=== PATIENT | male | born 1965 | race Caucasian/White ===

== ENCOUNTER 2017-01-24 08:08 | Outpatient (CLI) | payer BC ==
--- NOTE | 2017-01-24 10:51 | MRI ---
MRI LUMBAR SPINE WITHOUT CONTRAST: Date: 01/24/17 COMPARISON: None. HISTORY: Bilateral leg pain for 2 months. Lumbar disc herniation. TECHNIQUE: Multiplanar, multisequence MR images were obtained of the lumbar spine without contrast. FINDINGS: Generalized disc desiccation is seen. The vertebral bodies demonstrate normal height and alignment wi thout fracture or subluxation. The conus medullaris terminates normally at L1-2. The prevertebral and paraspinal soft tissues are unremarkable. T12-L1: Unremarkable. L1-2: No significant bulge or protrusion. Mild bilateral posterior facet arthrosis. No central canal stenos is. No neural foraminal stenosis. L2-3: A moderate disc osteophyte complex is seen. No posterior facet arthrosis. Moderate to severe central canal stenosis. Mild bilateral neural foraminal stenosis. L3-4: A large disc osteophyte complex is associated with a large superimposed central protrusion. Mild bila teral posterior facet arthrosis. Severe central canal stenosis. Moderate bilateral neural foraminal s tenosis. L4-5: A large disc osteophyte complex is seen. Mild bilateral posterior facet arthrosis. Mild central canal stenosis. Severe bilateral neural foraminal stenosis. L5-S1: A small generalized concentric disc bulge is associated with a central protrusion. This protrusion is associated with high T2 signal, likely secondary to an annular tear. No posterior facet arthrosis. M ild central canal stenosis. Moderate bilateral neural foraminal stenosis. IMPRESSION: Degenerative changes of the lumbar spine as above. POS: ABEBE
== END 2017-01-24 08:09 | disposition home or self-care (01) ==
LOC: SCSMRI 08:08
PROVIDERS: ATTEND Anesthesiology Pain Medicine
DX: M51.16 Intervertebral disc disorders with radiculopathy, lumbar region (principal); M47.26 Other spondylosis with radiculopathy, lumbar region
CPT/HCPCS: 72148

== ENCOUNTER → 2017-02-02 | Day surgery (SDC) | payer BC ==
[2017-02-01 10:28] VITALS: BMI 39.0
[~2017-02-02] MED LIST: Bupivacaine/Epinephrine 0.25% 30 ML VIAL ONE; CEFAZOLIN/Water 2 GM/20 ML SYRINGE ONE; Fentanyl 100 MCG/2 ML VIAL ONE; HYDROcodone/Acetaminophen 5/325 mg Tablet ONE; Midazolam HCl 2 mg/2 ml Vial ONE; Tamsulosin HCl 0.4 MG CAP ONE; Thrombin 5000 UNITS/5 ML VIAL ONE
--- NOTE | 2017-02-02 05:56 | HP ---
HISTORY OF PRESENT ILLNESS: Mr. Kwan is a 51-year-old man who is referred to us by Dr. Hood vogt for the lumbar stenosis with MRI at [facility] revealing severe central canal stenosis at L3 f rom central disk herniation. He denies weakness and saddle anesthesia. He does have very classic ne urogenic claudication symptoms. He has had [address] Marshall this year, but t hey helped minimally whereas last year, he had a single injection that nearly resolved his symptom pr esentation. At this point, he is ready for surgery as soon as possible. PAST MEDICAL HISTORY: Includes hypertension and back pain. MEDICATIONS: Hydrochlorothiazide. ALLERGIES: No known drug allergies. PAST SURGICAL HISTORY: Unassessed. PHYSICAL EXAMINATION: GENERAL: The patient is alert and oriented x3. NEUROLOGIC: Gait is severely antalgic. Lower extremity motor exam is normal. He has a normal strai ght leg raise, Mikel's test bilaterally. There is no sensory disturbance that I can discern in eit her lower extremities. 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 PLAN: Dr. Post met with the patient, reviewed imaging and advocated for L4 diskectomy. He explaine d to the patient the risks, benefits, and alternatives to the procedure. The patient expressed under standing and would like to move forward with surgery as discussed. I do believe the patient is menta jeromey competent and capable of making medical decisions for himself and move forward with surgery as pl anned.
[2017-02-02 08:37] LABS: #Basophils 0.1 thou/uL (0.0-0.2); #Eosinphils 0.2 thou/uL (0.0-0.7); #Lymphocytes 2.2 thou/uL (1.20-3.40); #Monocytes 0.7 thou/uL (0.11-0.59); #Neutrophils 10.3 thou/uL (1.40-6.50); %Basophils 0.8 % (0.0-1.0); %Eosinophils 1.2 % (0.0-10.0); %Lymphocytes 15.9 % (21.0-51.0); %Monocytes 5.5 % (0.0-10.0); Hematocrit 46.2 % (42.0-52.0); Mean Platelet Volume 6.3 fL (7.4-10.4); Red Blood Cell (RBC) Count 4.83 mill/uL (4.70-6.10); White Blood Cell (WBC) Count 13.5 thou/uL (4.8-10.8)
[2017-02-02 08:52] LABS: Anion Gap 13 mmol/L (10-20); BUN (Urea Nitrogen) 25 mg/dL (8.9-20.6); Calc. Creatinine Clearance 193 mL/min (70-130); Calcium 9.3 mg/dL (7.8-10.44); Carbon Dioxide 23 mmol/L (22-29); Chloride 106 mmol/L (98-107); Estimated GFR-MDRD Greater than 90
--- NOTE | 2017-02-02 08:55 | PRG ---
DATE OF SERVICE: 02/02/2017 Mr. Kwan is a 51-year-old gentleman known to us for an outpatient evaluation for lumbar radiculopa thy. He had an MRI scan performed which shows a very large L3 disk herniation with almost complete o bliteration of the spinal canal. The consent form today shows L4 diskectomy, but it more correctly s shayy read L3-L4 diskectomy. We are going to make that change. The patient's symptoms persist. The procedure components were discussed with the patient as were risks, benefits, and alternatives.
--- NOTE | 2017-02-02 10:08 | OP ---
DATE OF PROCEDURE: 02/02/2017 SURGEON: Jeff Post M.D. ENTRY WRITER: Micky Angulo PA-C. INDICATION: Pain. DIAGNOSIS: Lumbar disk herniation. PROCEDURES: L3-L4 laminectomy, L3-L4 discectomy. ANESTHESIA: General. TECHNIQUE: The patient was brought into the operating room and placed under general anesthesia. He was flipped from a supine to a prone position on the operating room table. A linear incision was paul nned over the L3-L4 segment. After prepping and draping and after an appropriate operative pause, th e incision was created. Soft tissues were swept away from midline. Self-retaining retractors were p ut into the wound for optimal exposure. After confirming the appropriate levels with C-arm fluorosco py, an Adson rongeur was used to remove the spinous process of L3 in the superior aspect of L4. High -speed cutting drill bit as well as 2, 3 and 4-mm Kerrisons were then used to perform a laminectomy. The underlying thecal sac was identified. There was a very large disk protuberance most easily acce ssed from the left lateral recess. Disk material was removed in a substantial amount with the assist ance of the nerve roots retractors, curettes and disk punches. At the completion of the procedure, t he central canal and lateral recesses were well decompressed. The wound was then irrigated. Hemosta sis was maintained throughout. The wound was then closed in anatomic layers and a pressure dressing was applied. There were no known procedural complications.
--- NOTE | 2017-02-05 12:23 | EKG ---
Test Reason : PREOP Blood Pressure : / mmHG Vent. Rate : 079 BPM Atrial Rate : 079 BPM P-R Int : 148 ms QRS Dur : 124 ms QT Int : 364 ms P-R-T Axes : 068 006 031 degrees QTc Int : 417 ms Normal sinus rhythm Right bundle branch block Abnormal ECG Confirmed by DEEPTI DOWLING ([id number]) on 02/05/2017 12:22:58 PM Referred By: EFRAIN Confirmed By:DEEPTI DOWLING
== END ==
LOC: SDC 07:20
PROVIDERS: ATTEND Neurological Surgery
PROC: 0ST20ZZ Resection of Lumbar Vertebral Disc, Open Approach (ICD-10-PCS; principal; 2017-02-02)
PROC: 01NB0ZZ Release Lumbar Nerve, Open Approach (ICD-10-PCS; principal; 2017-02-02)
DX: M51.26 Other intervertebral disc displacement, lumbar region (principal); I10 Essential (primary) hypertension; Z79.84 Long term (current) use of oral hypoglycemic drugs; Z79.82 Long term (current) use of aspirin; Z79.52 Long term (current) use of systemic steroids; Z79.899 Other long term (current) drug therapy; Z98.890 Other specified postprocedural states; Z87.891 Personal history of nicotine dependence
CPT/HCPCS: 36415; 76001; 80048; 85025; 93005; 93010; 96374; J2250; J3010